=== PATIENT | female | born 1975 | race Caucasian/White ===

== ENCOUNTER → 2016-11-27 | Outpatient (CLI) | payer OTHER ==
[~2016-11-27] MED LIST: B12; CETI10TA24 PO; MIRENA; MULT-516 PO; SUPER B COMPLEX
== END ==
LOC: STAR 08:40
PROVIDERS: ATTEND Specialist
DX: Z02.9 Encounter for administrative examinations, unspecified (principal)

== ENCOUNTER 2016-12-05 06:46 | Day surgery (SDC) | payer OTHER ==
[~2016-12-05] VITALS: Ht 157.5 cm; Wt 68.0 kg
[2016-12-05 07:19] LABS: HCG UR OBC PASS
[2016-12-05] MEDS ORDERED: LACTATED RINGERS 1,000 ML IV SCH (07:26)
[2016-12-05 07:27] VITALS: BP 123/75
[2016-12-05] MEDS ORDERED: PLEASE ENTER ALLERGIES MC SCH ×2 (09:00)
[2016-12-05] MEDS ORDERED: PROPOFOL 10 MG/ML, 20ML ONE (09:02)
== END 2016-12-05 10:05 ==
LOC: OUT 06:46
PROVIDERS: ATTEND Specialist
DX: R13.10 Dysphagia, unspecified (principal)
CPT/HCPCS: 43248; 81025; J2704; J7120

== ENCOUNTER → 2018-07-30 | Outpatient (CLI) | payer OTHER | END | disposition home or self-care (01) | LOC: CFH 08:41 | PROVIDERS: ATTEND Obstetrics & Gynecology Gynecology | DX: R92.8 Other abnormal and inconclusive findings on diagnostic imaging of breast (principal) | CPT/HCPCS: 77065 ==

== ENCOUNTER → 2018-08-14 | Outpatient (CLI) | payer OTHER | END | disposition home or self-care (01) | LOC: CFH 09:35 | PROVIDERS: ATTEND Obstetrics & Gynecology Gynecology | DX: R92.8 Other abnormal and inconclusive findings on diagnostic imaging of breast (principal) ==

== ENCOUNTER 2018-10-22 09:03 | Outpatient (CLI) | payer OTHER ==
[2018-10-25] MEDS ORDERED: CALC-534 PO (08:39)
== END 2018-10-22 23:59 | disposition home or self-care (01) ==
LOC: STAR 09:03
PROVIDERS: ATTEND Surgery
DX: Z02.9 Encounter for administrative examinations, unspecified (principal)

== ENCOUNTER 2018-10-30 10:00 | Day surgery (SDC) | payer OTHER ==
[~2018-10-30] VITALS: Ht 157.5 cm; Wt 71.0 kg
[~2018-10-30 10:00] MED LIST changes: +BUPIVACAINE/PF 0.5% ONE; +CALC-534 PO; +EPINEPHRINE 1 MG/ML, 1ML ONE
[2018-10-30] MEDS ORDERED: PROPOFOL 50 ML ONE (11:18)
[2018-10-30] MEDS ORDERED: FENTANYL PF 250 MCG/5ML ONE (11:18)
[2018-10-30] MEDS ORDERED: MIDAZOLAM 1 MG/ML, 2ML ONE (11:18)
[2018-10-30] MEDS ORDERED: LACTATED RINGERS 1,000 ML IV SCH (11:46)
[2018-10-30] MEDS ORDERED: GABAPENTIN 300 MG CAPSULE PO ONE (12:00)
[2018-10-30] MEDS ORDERED: ACETAMINOPHEN 500 MG TABLET PO ONE (12:00)
[2018-10-30] MEDS ORDERED: ONDANSETRON ODT 8 MG PO ONE (12:00)
[2018-10-30] MEDS ORDERED: SCOPOLAMINE PATCH, 1.5MG PATCH.TD72 TD ONE (12:00)
[2018-10-30 12:12] VITALS: BP 148/83
[2018-10-30 12:43] LABS: HCG UR SG 1.014 (1.003-1.030)
[2018-10-30] MEDS ORDERED: ONDANSETRON 2MG/ML, 2ML ONE (13:43)
[2018-10-30] MEDS ORDERED: DEXAMETHASONE 4 MG/ML, 1ML ONE (13:43)
[2018-10-30] MEDS ORDERED: CEFAZOLIN 1,000 MG ONE ×2 (13:43)
[2018-10-30] MEDS ORDERED: KETOROLAC 30 MG/1 ML ONE (13:44)
[2018-10-30] MEDS ORDERED: ONDANSETRON 2MG/ML, 2ML IV PRN (14:00)
[2018-10-30] MEDS ORDERED: MIDAZOLAM 1 MG/ML, 2ML IV PRN (14:00)
[2018-10-30] MEDS ORDERED: DIAZEPAM 5 MG/ML, 2ML IVPush PRN (14:00)
[2018-10-30] MEDS ORDERED: EPHEDRINE 50 MG/ML, 1ML IVPush PRN (14:00)
[2018-10-30] MEDS ORDERED: ONDANSETRON ODT 8 MG PO PRN (14:00)
[2018-10-30] MEDS ORDERED: PROMETHAZINE 25 MG/ML, 1ML IV PRN (14:00)
[2018-10-30] MEDS ORDERED: EPHEDRINE 50 MG/ML, 1ML IM PRN (14:00)
[2018-10-30] MEDS ORDERED: MEPERIDINE/PF 25MG/0.5ML IVPush PRN (14:00)
[2018-10-30] MEDS ORDERED: FENTANYL PF 100 MCG/2ML IV PRN (14:00)
[2018-10-30] MEDS ORDERED: HYDROmorphone 2 MG/ML, 1ML IVPush PRN (14:00)
[2018-10-30] MEDS ORDERED: hydrALAzine 20 MG/ML, 1ML IV PRN (14:00)
[2018-10-30] MEDS ORDERED: DIPHENHYDRAMINE 50 MG/ML, 1ML IVPush PRN (14:00)
[2018-10-30] MEDS ORDERED: OXYcodone 5 MG/5 ML ORAL.SOL UDC ONE (14:20)
[2018-10-30] MEDS ORDERED: OXYcodone 5 MG/5 ML ORAL.SOL UDC PO PRN (15:00)
[2018-10-30] MEDS ORDERED: LIDOCAINE 1%-EPI 1:100K, 50ML ONE (16:47)
[2018-10-30] MEDS ORDERED: LIDOCAINE 1%, 50ML ONE (16:47)
[2018-10-30] MEDS ORDERED: SODIUM BICARBONATE 4.2%, 5ML ONE (16:47)
== END 2018-10-30 16:00 | disposition home or self-care (01) ==
LOC: CFH 10:00 → EDSTATUS 13:00 → OUT 16:00
PROVIDERS: ATTEND Surgery
DX: N60.81 Other benign mammary dysplasias of right breast (principal); N60.41 Mammary duct ectasia of right breast; E66.9 Obesity, unspecified; Z68.41 Body mass index [BMI] 40.0-44.9, adult; Z79.899 Other long term (current) drug therapy; Z72.89 Other problems related to lifestyle; Z88.8 Allergy status to other drugs, medicaments and biological substances
CPT/HCPCS: 19281; 19301; 76098; 81025; 88307; J0690; J1100; J1885; J2250; J2405; J2704; J3010; J7120; Q0162; J0171